=== PATIENT | male | born 1960 | race Caucasian/White ===

== ENCOUNTER 2021-01-29 22:50 | Day surgery (SDCO) | payer OTHER | END 2021-01-31 15:16 | disposition home or self-care (01) | LOC: FER 22:50 → FMS 01-30 03:05 | PROVIDERS: ADMIT Internal Medicine | DX: R07.9 Chest pain, unspecified (principal); J18.9 Pneumonia, unspecified organism; J98.11 Atelectasis; I10 Essential (primary) hypertension; K76.0 Fatty (change of) liver, not elsewhere classified; M10.9 Gout, unspecified; Z79.899 Other long term (current) drug therapy; Z20.822 Contact with and (suspected) exposure to COVID-19; Z96.651 Presence of right artificial knee joint; Z86.16 Personal history of COVID-19 ==